=== PATIENT | male | born 1985 | race Caucasian/White ===

== ENCOUNTER 2018-12-23 12:38 | Outpatient (CLI) | payer OTHER, SELFPAY ==
[2018-12-23 13:08] LABS: Abs Immature Grans 0.02 k/cumm (0.0-0.09); Absolute Basophil Count 0.05 k/cumm (0.0-0.2); Absolute Eosinophil Count 0.03 k/cumm (0.0-0.7); Absolute Lymphocyte Count 1.67 k/cumm (1.2-3.4); Absolute Monocyte Count 0.39 k/cumm (0.11-0.7); Absolute Neutrophil Count 3.58 k/cumm (1.2-6.7); Basophils % 0.9; Eosinophils % 0.5; HCT 46.3 % (40.0-50.0); HGB 15.9 g/dL (13.5-17.5); Immature Grans % 0.3; Lymphocytes % 29.1; Mean Corp. HGB Concentration 34.3 g/dL (32.0-36.0); Mean Corpuscular Hemoglobin 30.8 pg (27.0-33.0); Mean Corpuscular Volume 89.6 fL (80-95); Mean Platelet Volume 11.9 fL (8.0-11.0); Monocytes % 6.8; Neutrophils % 62.4; Platelet Count 220 x1000/uL (130-400); RBC 5.17 m/cumm (4.50-6.00); RBC Distribution Width 13.3 % (11.8-14.1); White Blood Cell Count 5.74 k/cumm (4.4-10.8)
[2018-12-23 14:04] LABS: ALT 34 U/L (12-78); AST 18 U/L (15-37); Albumin 4.3 g/dL (3.4-5.0); Alkaline Phosphatase 62 U/L (46-116); Anion Gap 12.6 mmol/L (3-11); BUN 10 mg/dL (7-18); Bilirubin, Total 0.7 mg/dL (0.2-1.0); CO2 27.4 mmol/L (21.0-32.0); CREATININE 0.99 mg/dL (0.70-1.30); Calcium 9.4 mg/dL (8.5-10.1); Chloride 101 mmol/L (98-107); Glucose 172 mg/dL (70-100); Potassium 4.5 mmol/L (3.5-5.1); Sodium 141 mmol/L (136-145); TSH (W/Ref FT4) 0.64 uIU/mL (0.358-3.74); Total Protein 7.4 g/dL (6.4-8.2)
== END 2018-12-23 12:58 ==
PROVIDERS: PCP Family Medicine; Visit Provider Family Medicine
DX: F41.9 Anxiety disorder, unspecified (principal); R53.81 Other malaise; R80.9 Proteinuria, unspecified; Z00.00 Encounter for general adult medical examination without abnormal findings; E66.3 Overweight
CPT/HCPCS: 36415; 80053; 84443; 85025

== ENCOUNTER 2019-01-19 15:23 | Outpatient (CLI) | payer OTHER, SELFPAY ==
--- NOTE | 2019-01-19 15:20 | DI.RAD_ITS ---
SYMPTOM/DIAGNOSIS: EVAL LT ANKLE PAIN, S/P INVERSION INJURY LEFT ANKLE: Three views. No priors No acute fracture or dislocation is seen. There is soft tissue swelling about the ankle laterally. No radiopaque foreign bodies area seen in the soft tissues. If there is concern for internal derangement an MRI should be considered for further evaluation.
== END 2019-01-19 15:43 ==
PROVIDERS: PCP Family Medicine; Visit Provider Student in an Organized Health Care Education/Training Program
DX: M25.572 Pain in left ankle and joints of left foot (principal); M79.89 Other specified soft tissue disorders
CPT/HCPCS: 73610

== ENCOUNTER 2020-12-21 17:12 | Outpatient (REF) | payer OTHER, SELFPAY ==
[2020-12-23 14:06] LABS: Lyme Ab w Rflx to Lyme Confirm Negative (Negative)
[2020-12-24 00:05] LABS: Anaplasma phagocytophilum Negative (Negative); B. miyamotoi PCR Negative (Negative); Babesia divergens/MO-1 Negative (Negative); Babesia duncani Negative (Negative); Babesia microti Negative (Negative); Ehrlichia chaffeensis Negative (Negative); Ehrlichia ewingii/canis Negative (Negative); Ehrlichia muris eauclairensis Negative (Negative)
== END 2020-12-21 17:13 | disposition home or self-care (01) ==
LOC: LBN 17:12
PROVIDERS: PCP Family Medicine; Visit Provider Physician Assistant Medical
DX: Z11.8 Encounter for screening for other infectious and parasitic diseases (principal)
CPT/HCPCS: 87798; 86618

== ENCOUNTER 2021-03-16 08:46 | Outpatient (REF) | payer OTHER, SELFPAY ==
[2021-03-15 22:22] LABS: Calculated LDL 140 mg/dL (<100); Cholesterol 228 mg/dL (<200); HDL Cholesterol 48 mg/dL (40-60); Triglyceride 201 mg/dL (<150); Vitamin B12 571 pg/mL (193-986)
[2021-03-17 11:56] LABS: HIV-1/2 Ag & Ab Screen Negative (Negative)
[2021-03-17 12:14] LABS: Hepatitis C Ab w Rflx HCV PCR Negative (Negative)
== END 2021-03-16 08:47 | disposition home or self-care (01) ==
LOC: NCHCN 08:46
PROVIDERS: PCP Family Medicine; Visit Provider Family Medicine
DX: R20.2 Paresthesia of skin (principal); Z00.00 Encounter for general adult medical examination without abnormal findings; Z11.4 Encounter for screening for human immunodeficiency virus [HIV]; Z11.59 Encounter for screening for other viral diseases; Z13.220 Encounter for screening for lipoid disorders
CPT/HCPCS: 80061; 86803; 87389; 82607

== ENCOUNTER 2022-07-29 11:56 | Emergency (ER) | payer OTHER, SELFPAY ==
[2022-07-29 12:03] VITALS: BP 145/97; PULSE 101; RESP 20; TEMP 36.8; O2SAT 98
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
[2022-07-29] MEDS: Tetanus & Diphtheria Tox,ADULT 0.5 ML VIAL IM (13:12)
[2022-07-29] MEDS: Ibuprofen 800 MG TAB PO (13:57)
[2022-07-29 14:06] VITALS: BP 145/97; PULSE 101; RESP 20; TEMP 36.8; O2SAT 98
--- NOTE | 2022-07-29 15:31 | NUR.NOTE ---
Per Dr. Campbell referral made to ENT for an orbital fx in 10-14 days. Put the referral in the care manger's box for follow up appt assistance.Nursing Note:
== END 2022-07-29 14:09 | disposition home or self-care (01) ==
PROVIDERS: Emergency Provider Emergency Medicine; PCP Family Medicine
DX: S02.32XA Fracture of orbital floor, left side, initial encounter for closed fracture (principal); S01.81XA Laceration without foreign body of other part of head, initial encounter; Z23 Encounter for immunization; V86.52XA Driver of snowmobile injured in nontraffic accident, initial encounter; W22.09XA Striking against other stationary object, initial encounter; Y93.I9 Activity, other involving external motion
CPT/HCPCS: 12011; 90471; 99284; 70450; 70486; 99282